=== PATIENT | male | born 1995 | race Caucasian/White ===

== ENCOUNTER 2020-02-14 10:28 | Emergency (ER) | payer OTHER, SELFPAY | END 2020-02-14 11:05 | disposition left against medical advice (07) | LOC: HO.ED 10:52 | PROVIDERS: Emergency Provider Emergency Medicine | DX: R10.9 Unspecified abdominal pain (principal) | CPT/HCPCS: 99281 ==

== ENCOUNTER 2020-05-26 22:47 | Emergency (ER) | payer OTHER, SELFPAY ==
[2020-05-26 22:54] VITALS: BP 146/87; PULSE 229; RESP 20; TEMP 37.1; O2SAT 96; BMI 22.8
--- NOTE | 2020-05-26 23:35 | ED.GENADULT ---
HPI - General Adult General Chief complaint: General Medical Stated complaint: check Time Seen by Provider: 05/26/20 22:52 Source: patient and EMS Mode of arrival: EMS Limitations: no limitations History of Present Illness HPI narrative: 24-year-old male presents via EMS for wellness check. States that he has been doing speed balls, and approximately 2 bundles of heroin throughout the day. He used 10 bags just prior to arrival along with cocaine. He denies chest pain or pressure, palpitations, shortness of breath, abdominal pain, abdominal distention, dysuria, hematuria, suicidal ideation, and homicidal ideation. He presents because other persons that were with him overdose and required Narcan. He did not require Narcan. Onset (ago): hour(s) (Within the hour of arrival) Related Data Allergies Allergy/AdvReac Type Severity Reaction Status Date / Time phenobarbital Allergy Hives Verified 05/26/20 23:07 Review of Systems Review of Systems: Constitutional: No Fever, No Chills ENT/Mouth: No sore throat, No Rhinorrhea Eyes: No Eye Pain, No Swelling, No Redness Cardiovascular: No Chest Pain, No SOB Respiratory: No Cough, No Sputum Gastrointestinal: No Nausea, No Vomiting, No Diarrhea, No abdominal Pain Genitourinary: No Dysuria, No Hematuria Musculoskeletal: No joint pain, No Myalgias, No Joint Swelling Skin: No Skin Lesions, No rash Neuro: No Weakness, No Numbness, No Loss of Consciousness, No Dizziness, No Headache Psych: No Anxiety, No Depression, No SI/HI/AH/VH Heme/Lymph: No Bruising, No Bleeding,No Lymphadenopathy Endocrine: No Polyuria, No Polydipsia Yes all other systems are reviewed and are negative [facility] Past Medical History Attestation statement: The following information was validated with the patient. Source: old records reviewed Medical History Substance abuse Substance abuse requiring inpatient treatment Social History Social History Alcohol intake: never Smoking Status: Current every day smoker Smoked in Last 30 Days: Yes Use of substances other than those prescribed or required for medical reasons: No Substance Use Type: Crack/Cocaine and Heroin Substance Use Frequency: Chronic Longstanding Any prior treatment program specific to substance use: Yes Advance Directives: No Advance Directives Information Provided: No Physical Exam Vital Signs: Vital Signs: Last Vital Signs Temp 98.8 F 05/26/20 22:54 Pulse 229 H 05/26/20 22:54 Resp 20 05/26/20 22:54 BP 146/87 H 05/26/20 22:54 Pulse Ox 96 05/26/20 22:54 Body Mass Index 22.8 Appearance: Alert. Oriented X3. No acute distress. Eyes: Pupils equal, round and reactive to light. ENT: Pharynx normal. Neck: Normal inspection. Neck supple. CVS: Tachycardic heart rate and rhythm. Pulses normal. Respiratory: No respiratory distress. Breath sounds normal. Abdomen: Soft and nontender. Skin: Skin warm and dry. Normal skin color. Normal skin turgor. Extremities: No lower extremity edema. Neuro: No motor deficit. No sensory deficit. Course Course Course Narrative: 24-year-old male with past medical history of substance abuse presents via EMS for wellness check. Patient was with other persons who overdosed on heroin. He states that he used 20 bags of heroin with cocaine today and does not have any symptoms at this time. States that he used 10 bags of heroin and cocaine just prior to arrival, which is consistent with his elevated heart rate and blood pressure. Will monitor O2 sats, and heart rate, as patient patient did not require Narcan he is free to leave at any time. He does not want detox. He declines labs and urinalysis and further cardiac studies. Patient will be able to leave in approximately an hour. 11:44 p.m. heart rate is 110, blood pressure 138/89, no change in mental status. Patient requesting to leave. Patient discharged home with dose of Narcan. Medical Decision Making Differential Diagnosis Differential Diagnosis: Substance abuse Discharge Plan Discharge Clinical Impression: Polysubstance abuse Patient Disposition: Home, Self-Care Instructions: Polysubstance Abuse (ED) Additional Instructions: Consider detox. Thank you for choosing this emergency department for evaluation. Please follow-up with primary care physician as needed. Return to the emergency department for any new, concerning, or worsening symptoms.
[2020-05-26 23:40] VITALS: BP 138/89; PULSE 110; RESP 18; TEMP 37.1; O2SAT 97
--- NOTE | 2020-05-26 23:43 | PC.NURSE ---
PT REFUSED TO GIVE CLOTH OVER TO SECURITY DECIDED HE WANTED TO LEAVE RIGOBERTO LEBLANC AWARE AND PT WILL GO WITH ANAHI.
[2020-05-26] MEDS: Naloxone HCl Nasal TAKE HOME 4 MG SPRAY NOSTRILALT (23:48)
== END 2020-05-27 00:38 | disposition home or self-care (01) ==
PROVIDERS: Emergency Provider Internal Medicine
DX: F11.188 Opioid abuse with other opioid-induced disorder (principal); F14.188 Cocaine abuse with other cocaine-induced disorder; F17.200 Nicotine dependence, unspecified, uncomplicated; Z71.6 Tobacco abuse counseling; Z71.51 Drug abuse counseling and surveillance of drug abuser
CPT/HCPCS: 99284

== ENCOUNTER 2021-04-17 14:11 | Emergency (ER) | payer OTHER, SELFPAY ==
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
[2021-04-17 14:37] VITALS: BP 170/90; PULSE 92; O2SAT 98
[2021-04-17 14:46] VITALS: BP 148/88; PULSE 90; RESP 18; TEMP 36.6; O2SAT 99; BMI 27.3
[2021-04-17 15:28] VITALS: BP 144/97; PULSE 102; RESP 16; O2SAT 95
[2021-04-17] MEDS: Naloxone HCl Nasal TAKE HOME 4 MG SPRAY NOSTRILALT (15:43)
== END 2021-04-17 15:42 | disposition home or self-care (01) ==
LOC: HO.ED 14:52
PROVIDERS: Emergency Provider Emergency Medicine
DX: T40.1X1A Poisoning by heroin, accidental (unintentional), initial encounter (principal); F11.20 Opioid dependence, uncomplicated; Y92.9 Unspecified place or not applicable; F14.90 Cocaine use, unspecified, uncomplicated
CPT/HCPCS: 99283

== ENCOUNTER 2021-08-26 11:29 | Emergency (ER) | payer OTHER, SELFPAY ==
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
[2021-08-26 11:55] VITALS: BP 145/80; BP 155/62; PULSE 103; PULSE 112; RESP 18; TEMP 37.3; O2SAT 100; O2SAT 96; BMI 23.5
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
== END 2021-08-26 13:33 | disposition left against medical advice (07) ==
PROVIDERS: Emergency Provider Emergency Medicine
DX: M25.561 Pain in right knee (principal)
CPT/HCPCS: 73564; 99283

== ENCOUNTER 2021-08-27 13:31 | Emergency (ER) | payer OTHER, SELFPAY ==
[2021-08-27 13:35] VITALS: BP 148/97; PULSE 131; RESP 18; TEMP 37.2; O2SAT 96; BMI 26.6
[2021-08-27] MEDS: Ibuprofen 800 MG TABLET PO (14:28)
--- NOTE | 2021-08-27 14:30 | MHC.RECOVSUP ---
Recovery Support note: Patient is a 25 year old Stateless speaking male who presented to [facility] ED due to leg pain. Patient was here on 08/26 for the same reason however overdosed in the bathroom and left without treatment. Patient reports he would like to go to detox at this time. Patient states he missed his methadone the past two days. Patient reports he was using 1 gram of heroin a day while on methadone however has used 4 grams a day IV for the past two days. Patient denies SI/HI. This commercial underwriter will assist patient in referring to ATS facilties.
[2021-08-27 14:40] VITALS: BP 124/88; PULSE 116; RESP 18; O2SAT 96
--- NOTE | 2021-08-27 14:49 | PC.NURSE ---
Medicated pt with IBU 800mg. Pt disclosed to author that he took 4 tramadol this morning (ez=730mi) and 400mg of tramadol the previous evening. Stated he also used two bundles of heroin prior to his arrival in the department. Pt states he has made the recovery team aware of his recent use. Pt rates rigth knee pain 9.5/10 prior to IBU administration. Provided pt with warm blanket, pillow, dimmed lights and provided verbal reassurance. maik.
--- NOTE | 2021-08-27 15:00 | ED_ITS ---
HPI - General Adult General Chief complaint: Extremity Injury, Lower Stated complaint: Knee pain Time Seen by Provider: 08/27/21 13:38 Source: patient Mode of arrival: ambulatory Limitations: no limitations History of Present Illness HPI narrative: Patient presents ED for lateral right knee pain. Patient denies any swelling or redness. Patient was seen he S yesterday for for right knee pain and had x-ray done but left before he got the results. Patient states no leg swelling, calf pain, redness, fever, chills, chest pain or shortness of breath. Related Data Allergies Allergy/AdvReac Type Severity Reaction Status Date / Time phenobarbital Allergy Hives Verified 08/27/21 13:35 Review of Systems 2 Review of Systems: Right knee pain Yes all other systems are reviewed and are negative [facility] Past Medical History Medical History Substance abuse Substance abuse requiring inpatient treatment Social History Social History (Updated 04/17/21 @ 14:33 by Suri Hagan DO) Alcohol intake: never Patient Tobacco Use Status: Tobacco use Unknown Substance Use Type: Crack/Cocaine and Heroin Advance Directives: No Advance Directives Information Provided: No Physical Exam ED Vital Signs: Vital Signs - 24 hr 08/27/21 13:35 08/27/21 14:40 08/27/21 17:00 Temperature 98.9 F 97.8 F Pulse Rate 131 H 116 H 86 Respiratory Rate 18 18 16 Blood Pressure 148/97 H 124/88 106/55 L Pulse Oximetry 96 96 97 BMI result Body Mass Index 26.6 Const General: cooperative, healthy appearing, comfortable, no acute distress, well developed and alert Orientation/consciousness: oriented to time and patient oriented x3 HENMT Head: Yes normal to inspection, Yes No palpable skull fracture present, Yes normocephalic and No atraumatic Eyes General: appearance normal, both eyes and all related structures Neck Neck: Yes normal visual inspection, Yes full ROM, Yes no lymphadenopathy, Yes no meningeal signs, Yes trachea midline, No anterior neck swelling and No tender Chest Chest palpation & inspection: normal inspection of the chest and normal palpation of entire chest wall Resp Effort & Inspection: normal respiratory effort and able to speak in complete sentences Auscultation: clear to auscultation bilaterally Cardio Jugular venous distension: no JVD Heart sounds: S1 normal heart sound present and S2 normal heart sound present GI Inspection: Yes normal to inspection and No abdominal wall ecchymosis Palpation (GI): Soft to palpation, not firm, nontender, no guarding and not rigid General: No CVA tenderness and Yes no CVA tenderness Back/Spine/Pelvis Back: no CVA tenderness, No CVA tenderness and No back tenderness Skin General skin exam: no rashes or lesions noted and elasticity normal Neuro General: oriented to time, patient oriented x3 and no meningeal signs Cranial nerves: Yes CN's II-XII intact bilaterally Extrem General: Yes normal to inspection and Yes full ROM Knee images: 1. Medial side of knee tenderness to palpation. Negative for swelling, redness, deformity, ecchymosis. Popliteal pulses intact. Negative for swelling/redness of calf, leg, or foot. Motor/neuro/vascular exam intact. Psych Appearance: grossly normal, well kempt and not disheveled Course Course Course Narrative: No need for repeat imaging. Right knee x-ray normal Reevaluation(s) Reevaluation #1: No need for repeat x-ray. Patient requesting detox. [facility] care team saw patient and he will be going to living room and wait for detox bed. Not suspecting septic joint, DVT, arterial occlusion, osteomyelitis, necrotizing fascitis, or cellulitis. Time: 16:39 Discharge Plan Discharge Clinical Impression: Knee pain Patient Disposition: Home, Self-Care Instructions: Knee Pain (ED) Additional Instructions: You will be going to the living room. Return to ED for any redness, knee swel ling, pus discharge, foul odor, stiffness, leg swelling, calf pain, fever, chills, chest pain, shortness of breath, coughing up blood, or any other concerning symptoms. Print Language: Lao
[2021-08-27 17:00] VITALS: BP 106/55; PULSE 86; RESP 16; TEMP 36.6; O2SAT 97
--- NOTE | 2021-08-27 18:40 | MHC.RECOVSUP ---
Recovery Support note; Patient referred to [facility]. No beds at this time. Patient not interested in going anywhere else. No staff at [facility] tonight. Recovery Team attempting to get patient Lyft to friend's house however no drivers available at this time. Will continue to try.
== END 2021-08-27 19:23 | disposition home or self-care (01) ==
PROVIDERS: Emergency Provider Emergency Medicine
DX: M25.561 Pain in right knee (principal)
CPT/HCPCS: 99283; 99284